=== PATIENT | male | born 1980 | race Hispanic/Latino ===

== ENCOUNTER 2019-07-16 13:21 | Emergency (ER) | payer SELFPAY | END 2019-07-16 13:28 | disposition left against medical advice (07) | LOC: EDH 13:21 | DX: R10.13 Epigastric pain (principal); Z53.21 Procedure and treatment not carried out due to patient leaving prior to being seen by health care provider ==

== ENCOUNTER → 2019-07-23 | Outpatient (CLI) | payer BC | END | disposition home or self-care (01) | LOC: RAH 09:06 | PROVIDERS: ATTEND Internal Medicine | DX: Z90.49 Acquired absence of other specified parts of digestive tract (principal); R16.0 Hepatomegaly, not elsewhere classified; R94.5 Abnormal results of liver function studies | CPT/HCPCS: 74181 ==